=== PATIENT | male | born 1970 | race Caucasian/White ===

== ENCOUNTER 2023-09-01 04:01 | Day surgery (SDC) | payer BC ==
[2023-08-31 09:35] VITALS: BMI 28.5
[2023-09-01] MEDS ORDERED: SUCCINYLCHOLINE CHLORIDE 200 MG/10 ML SYRINGE ONE (12:36)
[2023-09-01] MEDS ORDERED: PROPOFOL 40 ML ONE (12:36)
[2023-09-01] MEDS ORDERED: FENTANYL CITRATE/PF 50 MCG/ML VIAL ONE ×4 (12:36→14:12)
[2023-09-01] MEDS ORDERED: MIDAZOLAM HCL 2 MG/2 ML SINGLE DOSE VIAL ONE (12:37)
[2023-09-01] MEDS: ceFAZolin SODIUM 1 GM VIAL IVPB ONE (13:00)
[2023-09-01] MEDS: IOHEXOL 300 MG/ML INFUS..BTL IV ONE (13:03)
[2023-09-01] MEDS: GENTAMICIN SO4 80 MG/2 ML VIAL IVPB ONE (13:30)
[2023-09-01] MEDS ORDERED: GENTAMICIN SO4 80 MG/2 ML VIAL ONE (13:31)
[2023-09-01] MEDS ORDERED: ONDANSETRON 4 MG/2 ML VIAL IVPUSH PRN (13:47)
[2023-09-01] MEDS ORDERED: oxyCODONE HCL 5 MG TABLET PO PRN (13:47)
[2023-09-01] MEDS ORDERED: LACTATED RINGERS SOLUTION 1,000 ML IV SCH (14:00)
[2023-09-01 14:26] VITALS: RESP 18
[2023-09-01 15:30] VITALS: BP 118/60; PULSE 70; TEMP 97.6
== END 2023-09-01 15:49 | disposition home or self-care (01) ==
LOC: JASU-SURG 04:01
PROVIDERS: ATTEND Urology
PROC: 0TC08ZZ Extirpation of Matter from Right Kidney, Via Natural or Artificial Opening Endoscopic (ICD-10-PCS; principal; 2023-09-01 12:30)
PROC: 0T7B8DZ Dilation of Bladder with Intraluminal Device, Via Natural or Artificial Opening Endoscopic (ICD-10-PCS; 2023-09-01 12:30)
PROC: BT1DYZZ Fluoroscopy of Right Kidney, Ureter and Bladder using Other Contrast (ICD-10-PCS; 2023-09-01 12:30)
DX: N20.0 Calculus of kidney (principal)
CPT/HCPCS: 76000-TC-FY; 94760; C1758